=== PATIENT | female | born 1975 | race Hispanic/Latino ===

== ENCOUNTER 2025-02-04 21:56 | Emergency (ER) | payer BC, SELFPAY ==
[2025-02-04 22:08] VITALS: BP 228/93; PULSE 66; RESP 18; TEMP 36.3; O2SAT 100; BMI 44.4
--- NOTE | 2025-02-04 22:12 | EKG_ITS ---
[address] [address] Test Date: 2025-02-04 Pat Name: Amanda Barth Department: [facility] Room: Gender: Female [employer]: HENOK : 1975 Requested By: Order Number: [id number] Reading MD: Gentry Menon MD Measurements Intervals [place] Rate: 62 P: 16 [place]: 166 QRS: 14 QRSD: 88 T: 0 QT: 430 QTc: 436 Interpretive Statements Normal sinus rhythm Nonspecific ST and T wave abnormality Electronically Signed On 02-05-2025 7:45:33 PDT by Gentry Menon MD
[2025-02-04 22:14] VITALS: PULSE 62; RESP 19
--- NOTE | 2025-02-04 22:14 | ED_ITS ---
HPI - Abdominal Pain General Chief Complaint: Abdominal Pain Stated Complaint: possible gall bladder issues pain is stomach/back Time Seen by Provider: 02/04/25 22:04 Source: patient Mode of arrival: Wheelchair History of Present Illness HPI narrative: 49-year-old female without any significant past medical history comes into the ED from home for evaluation of epigastric pain/right upper quadrant abdominal pain ongoing persistent since approximately 1700 hours. States it started spontaneously nothing making it better or worse. States that she did try taking 400 mg of ibuprofen prior to arrival but this is not help therefore decided come into the ED for further evaluation treatment. Patient denies any other symptoms such as headache visual disturbances chest pain shortness breath fever chills nausea vomiting or any other GI/ symptoms time. Related Data Home Medications ?Medication ?Instructions ?Recorded ?Confirmed No Known Home Medications 02/04/2501/08 Allergies Allergy/AdvReac Type Severity Reaction Status Date / Time No Known Drug Allergies Allergy Verified 02/04/25 22:07 Review of Systems Review of Systems Narrative: General: Denies fever, chills, weight loss HEENT: Denies headache, eye drainage, eye irritation, head trauma, sore throat, voice change Cardiovascular: Denies any chest pain, palpitations, tachycardia Respiratory: Denies any shortness of breath, cough, wheeze, stridor GI/: Positive epigastric/right upper quadrant abdominal pain, denies nausea, vomiting, diarrhea, bright red blood per rectum, melanotic stools, urinary frequency, urinary retention, dysuria, hematuria MSK: Denies any joint pain, muscle pains, swelling Skin: Denies any rashes, lesions, discoloration Neuro: Denies any headache, lightheadedness, dizziness, fainting, weakness Psych: Denies SI/HI Patient History Social History Smoking Status: Never smoker Smoking Status: Never smoker Exam Narrative Exam Narrative: General: Cooperative, well-developed, not in acute distress HEENT: Normocephalic, atraumatic, PERRLA, normal sclera, eyelids normal Neck: Active full range of motion, atraumatic Chest: Normal to inspection, negative crepitus, no overlying erythema ecchymosis Respiratory: Normal respiratory effort, not in acute respiratory distress, clear to auscultation bilaterally negative cough, wheeze, tachypnea, rhonchi, rales Cardiology: Regular rate rhythm negative gallop, murmur, rubs GI/: Mild tenderness to palpation epigastric region, soft, non rigid, normal to inspection, exam deferred MSK: Full active range of motion in all 4 extremities, atraumatic, no tenderness to palpation of any bony prominences Skin: No rashes or lesions noted Neuro: Alert awake oriented x3, moves all 4 extremities spontaneously, cranial nerves intact, able to answer all questions appropriately follows commands appropriately Psych: Cooperative, negative suicidal or homicidal ideations Initial Vital Signs Initial Vital Signs: Vital Signs Temperature 97.3 F L 02/04/25 22:08 Pulse Rate 66 02/04/25 22:08 Respiratory Rate 18 02/04/25 22:08 Blood Pressure 228/93 H 02/04/25 22:08 Pulse Oximetry 100 02/04/25 22:08 Oxygen Delivery Method Room Air 02/04/25 22:08 Course Orders Ordered: ED Orders 02/04/25 22:12 EKG-12 Lead Stat 02/04/25 22:13 CT abdomen pelvis w con Stat CXR [XR chest 1V] Stat 02/04/25 22:15 Complete Blood Count AUTO DIFF Stat Comprehensive Metabolic Panel Stat HCG Quantitative /Beta subunit Stat Lipase Stat MAG [Magnesium] Stat Troponin & CK Cardiac Panel Stat Discontinued Medications Sodium Chloride (Normal Saline 0.9%) 1,000 mls @ 1,000 mls/hr IV BOLUS ONE Stop: 02/04/25 23:11 Last Admin: 02/04/25 22:33 Dose: 1,000 mls/hr Documented By: ONEYDA Morphine Sulfate (Morphine 4 Mg/Ml Inj) 4 mg IV NOW ONE Stop: 02/04/25 22:13 Last Admin: 02/04/25 22:34 Dose: 4 mg Documented By: ONEYDA Ondansetron HCl (Ondansetron 4 Mg/2 Ml Inj) 4 mg IV NOW ONE Stop: 02/04/25 22:13 Last Admin: 02/04/25 22:33 Dose: 4 mg Documented By: ONEYDA Vital Signs Vital signs: Vital Signs - 8 hr 02/04/25 22:08 02/04/25 22:14 02/04/25 22:15 Temperature 97.3 F L Pulse Rate 66 62 62 Respiratory Rate 18 19 13 Blood Pressure 228/93 H Pulse Oximetry 100 Oxygen Delivery Method Room Air 02/04/25 22:15 02/04/25 22:33 02/04/25 22:50 Temperature Pulse Rate 61 60 Respiratory Rate 13 Blood Pressure 236/103 H Pulse Oximetry 98 100 Oxygen Delivery Method 02/04/25 22:50 Temperature Pulse Rate Respiratory Rate Blood Pressure 186/90 H Pulse Oximetry Oxygen Delivery Method MDM - Abdominal Pain Differential Diagnosis Differential diagnosis: Likely abdominal pain, gastroenteritis, pancreatitis and other (ACS, pneumonia, cholecystitis, cholelithiasis) Lab Data 02/04/25 22:15 02/04/25 22:15 Labs: Lab Results 02/04/25 Range/Units 22:15 WBC 11.3 H (4.5-11.0) X10^3/uL RBC 4.94 (4.0-5.2) X10^6/uL Hgb 14.6 (12.0-16.0) g/dL Hct 43.1 (36-46) % MCV 87.4 (80-100) fL MCH 29.5 (26-34) PG MCHC 33.8 (30-36) % RDW 13.9 (11.6-14.8) % Plt Count 246 (150-400) X10^3/uL Neut % (Auto) 75.3 H (50-75) % Lymph % (Auto) 18.8 L (25-40) % [place] % (Auto) 4.9 (3-14) % Eos % (Auto) 0.3 L (2-4) % Baso % (Auto) 0.7 (0-2) % Neut # (Auto) 8500 H (4548-7567) /uL Lymph # (Auto) 2100 (8370-0643) /uL [place] # (Auto) 600 (0-900) /uL Eos # (Auto) 0 (0-450) /uL Baso # (Auto) 100 (0-100) /uL Sodium 135 L (137-145) mmol/L Potassium 3.9 (3.4-5.1) mmol/L Chloride 100 (98-107) mmol/L Carbon Dioxide 24 (22-32) mmol/L BUN 16 (7-17) mg/dL Creatinine 0.70 (0.52-1.04) mg/dL Estimated GFR > 60 (>60) mL/min BUN/Creatinine Ratio 22.9 H (6-22) Glucose 147 H (70-99) mg/dL Calcium 9.3 (8.4-10.2) mg/dL Magnesium 1.8 (1.6-2.3) mg/dL Total Bilirubin 0.5 (0.2-1.3) mg/dL AST 26 (14-36) IU/L ALT 24 (<35) IU/L Alkaline Phosphatase 81 (38-126) U/L Total Creatine Kinase 92 (30-135) U/L Troponin I < 0.012 (0.01-0.034) ng/mL Total Protein 8.0 (6.3-8.2) g/dL Albumin 4.9 (3.5-5.0) g/dL Globulin 3.1 (1.7-4.1) g/dL Albumin/Globulin Ratio 1.6 (1.0-2.8) Lipase 66 (23-300) U/L HCG, Quant < 2.39 mIU/mL Point of care testing: Point of Care Testing Test Results Negative Urine Dip Bedside Urine Glucose Negative Bedside Urine Bilirubin - Negative Bedside Urine Ketone +/- 5 Urine Specific [place] 1.010 Bedside Urine Occult Blood +/- Bedside Urine pH 7.5 Bedside Urine Protein - Negative Bedside Urine Urobilinogen - Negative Bedside Urine Nitrite - Negative Bedside Urine Leukocytes - Negative Esterase Imaging Data CT scan - abdomen/pelvis: Radiologist's Impression: [place] [address] CT Scan Report Signed Patient: Amanda Barth MR#: [id number] : 1975 Acct:[id number] Age/Sex: 49 / F Date of Service: 02/04/25 Loc: ED Accession Number: [id number] Procedure: CT abdomen pelvis w con Ordering Provider: Vazquez Blackwell D.O. PROCEDURE: CT ABDOMEN PELVIS W CON INDICATIONS: epigastric pain TECHNIQUE: After the administration of intravenous contrast, axial sections acquired from the lung bases to the pubic symphysis. Coronal and sagittal reformats were performed. For radiation dose reduction, the following was used: automated exposure control, adjustment of mA and/or kV according to patient size. COMPARISON: None. FINDINGS: Image quality: Diagnostic. Lower Chest: No significant findings. ABDOMEN: Liver: No solid mass. Hepatic steatosis. Gallbladder: Cholelithiasis without wall thickening or pericholecystic fluid. Biliary ducts: No biliary dilation. Pancreas: No ductal dilation. Spleen: Size is within normal limits. Adrenal Glands: No adrenal nodules. Kidneys and Ureters: No hydronephrosis. No solid mass. No complex renal cystic lesion which requires follow up. Bilateral simple renal cysts. Stomach and Bowel: Normal colonic caliber, without significant wall thickening. Appendix is not definitively visualized, however there is no secondary signs of acute inflammation in the right lower quadrant to suggest acute appendicitis. Peritoneum: No abnormal intraperitoneal fluid. No free air. Ventral Wall: No significant ventral hernia. Abdominal Nodes: No retroperitoneal or mesenteric adenopathy by size criteria. Vessels: Aorta and inferior vena cava are normal in size. PELVIS: Pelvic Organs: Unremarkable. Bladder: No bladder wall thickening, accounting for underdistention. Pelvic Nodes: No enlarged lymph nodes. Miscellaneous: No inguinal hernias are seen. Bones: No aggressive osseous abnormality. IMPRESSION: 1. Cholelithiasis without CT evidence of acute cholecystitis. 2. Hepatic steatosis. Chest x-ray: Radiologist's Impression: [place] [address] XRay Report Signed Patient: Amanda Barth MR#: [id number] : 1975 Acct:[id number] Age/Sex: 49 / F Date of Service: 02/04/25 Loc: ED Accession Number: [id number] Procedure: XR chest 1V Ordering Provider: Vazquez Blackwell D.O. PROCEDURE: XR CHEST 1V INDICATIONS: epigastric pain, pain radiating into shoulder at times TECHNIQUE: One view of the chest was acquired. COMPARISON: None. FINDINGS: Surgical changes and devices: None. Lungs and pleura: Lungs are clear. No pleural effusions or pneumothorax. Mediastinum: Mediastinal contours appear normal. Heart size is normal. Bones and chest wall: No suspicious bony lesions. Overlying soft tissues appear unremarkable. IMPRESSION: No acute cardiopulmonary abnormality is seen. ECG Data Interpretation: EKG interpreted by ED physician sinus 62 beats per minute QTC [address] changes no STEMI MDM Narrative Medical decision making narrative: 49-year-old female without any significant past medical history presenting for epigastric/right upper quadrant abdominal pain started at around 5:00 p.m. no nausea no vomiting no other symptoms at this time states it started spontaneously nothing making it better or worse. Patient had lab work imaging performed here in the emergency department. EKG nonischemic in nature, patient with only slightly elevated WBC at 11.3, Chem panel unremarkable creatinine normal, bilirubin and LFTs normal, troponin negative, chest x-ray without any acute cardiopulmonary abnormality. CT scan showing cholelithiasis without cholecystitis. Patient able to tolerate p.o. liquids and solids, did have improved symptoms after administration medication here, instructed her to follow up with General surgery in an outpatient setting, she was given strict return precautions she verbalized understanding of this and agrees to being discharged home with outpatient follow up Discharge Plan Departure Patient Disposition: Home Clinical Impression: Cholelithiasis Instructions: Gallstones (Alternative Therapy), DI for Gallstones Activity Restrictions/Additional Instructions: Please follow up with your primary care doctor, as well as General surgery Please limit/decreased any intake of fatty foods and started bland diet to help with your strict symptoms for the next 24 hours Please read the discharge instructions sheet carefully and bring all papers to all doctor follow-up visits, as it may contain information that your doctor may want to see. Disease processes change and evolve, if your symptoms worsen or if you develop any new symptoms that are concerning to you please return for evaluation. Your evaluation today does not show any evidence of any life- threatening/serious illnesses requiring admission to the hospital or surgery. Please follow-up with your doctor for re-evaluation in approximately 1 day. Seek immediate medical attention for any worrisome symptoms. *If you do not have a primary care provider please contact the [facility] Resource line at [phone]. They will ask some questions about your medical history and help get you set up with a doctor in the community. Prescriptions: No Action No Known Home Medications Referrals: Ricci Domingo MD [Physician, General Surgery] Referral Note: Cholelithiasis Stand Alone Forms: Patient Portal/API
[2025-02-04 22:15] VITALS: BP 236/103; PULSE 62; RESP 13
[2025-02-04 22:23] LABS: Add Manual Diff / Slide Review NO; Basophils Absolute Auto 100 /uL (0-100); Basophils Percent Auto 0.7 % (0-2); Eosinophils Absolute Auto 0 /uL (0-450); Eosinophils Percent Auto 0.3 % (2-4); Hematocrit 43.1 % (36-46); Hemoglobin 14.6 g/dL (12.0-16.0); Lymphocytes Absolute Auto 2100 /uL (1100-4500); Lymphocytes Percent Auto 18.8 % (25-40); Mean Corpuscular HGB Conc 33.8 % (30-36); Mean Corpuscular Hemoglobin 29.5 PG (26-34); Mean Corpuscular Volume 87.4 fL (80-100); Monocytes Absolute Auto 600 /uL (0-900); Monocytes Percent Auto 4.9 % (3-14); Neutrophils Absolute Auto 8500 /uL (1500-7000); Neutrophils Percent Auto 75.3 % (50-75); Platelet Count 246 X10^3/uL (150-400); Red Blood Cell Count 4.94 X10^6/uL (4.0-5.2); Red Cell Distribution Width 13.9 % (11.6-14.8); White Blood Cell Count 11.3 X10^3/uL (4.5-11.0)
[2025-02-04 22:33] VITALS: PULSE 61; O2SAT 98
[2025-02-04 22:33] LABS: Creatine Kinase 92 U/L (30-135); Magnesium 1.8 mg/dL (1.6-2.3)
[2025-02-04] MEDS: SODIUM CHLORIDE 0.9% 1,000 ML 1000 ML IV (22:33)
[2025-02-04] MEDS: ONDANSETRON 4 MG/2 ML INJ IV (22:33)
[2025-02-04] MEDS: MORPHINE 4 MG/ML INJ IV (22:34)
[2025-02-04 22:46] LABS: Troponin I < 0.012 ng/mL (0.01-0.034)
[2025-02-04 22:50] VITALS: BP 186/90; PULSE 60; RESP 13; O2SAT 100
[2025-02-04 22:50] LABS: Alanine Aminotransferase 24 IU/L (<35); Albumin 4.9 g/dL (3.5-5.0); Albumin Globulin Ratio 1.6 (1.0-2.8); Alkaline Phosphatase 81 U/L (38-126); Aspartate Aminotransferase 26 IU/L (14-36); BUN Creatinine Ratio 22.9 (6-22); Bilirubin Total 0.5 mg/dL (0.2-1.3); Blood Urea Nitrogen 16 mg/dL (7-17); Calcium 9.3 mg/dL (8.4-10.2); Carbon Dioxide 24 mmol/L (22-32); Chloride 100 mmol/L (98-107); Estimated Glomerular Filt Rate > 60 mL/min (>60); Globulin 3.1 g/dL (1.7-4.1); Glucose 147 mg/dL (70-99); HEMOLYSIS < 15 (0-50); Lipase 66 U/L (23-300); Potassium 3.9 mmol/L (3.4-5.1); Sodium 135 mmol/L (137-145)
[2025-02-04 23:07] LABS: HCG Quantitative /Beta subunit < 2.39 mIU/mL
[2025-02-04] MEDS: ONDANSETRON 4 MG ODT PREPACK 1 BOTTLE MISC (23:47)
[2025-02-04] MEDS: OXYCODONE/APAP 5/325 PREPACK 1 BOTTLE MISC (23:47)
[2025-02-05 00:19] VITALS: BP 178/85; PULSE 87; RESP 16; O2SAT 98
== END 2025-02-05 00:02 | disposition home or self-care (01) ==
PROVIDERS: Emergency Provider Student in an Organized Health Care Education/Training Program
DX: K80.20 Calculus of gallbladder without cholecystitis without obstruction (principal)
CPT/HCPCS: 36415; 71045; 74177; 80053; 81003; 81025; 82550; 83690; 83735; 84484; 84702; 85025; 93005; 93010; 96361; 96374; 96375; 99284; J2270; J2405; Q9967